=== PATIENT | male | born 1960 | race Two or more races ===

== ENCOUNTER 2016-11-08 08:49 | Day surgery (SDC) | payer BC ==
[2016-11-03 15:21] LABS: Basophils # (auto) 0 uL; Basophils % (auto) 0.3 % (0.0-2.0); Eosinophils # (auto) 0.1 uL; Eosinophils % (auto) 1.2 % (0.0-7.0); Hematocrit 44.3 % (41.0-53.0); Hemoglobin 14.5 g/dL (13.5-17.5); Lymphocytes # (auto) 1.9 uL; Lymphocytes % (auto) 23.1 % (10.0-50.0); Mean Corpuscular Hemoglobin 31.4 pg (28.0-32.0); Mean Corpuscular Hgb Conc. 32.7 g/dL (32.0-36.0); Mean Corpuscular Volume 96.2 fL (80.0-100.0); Mean Platelet Volume 9.3 fL (7.4-10.4); Monocytes # (auto) 0.4 uL; Monocytes % (auto) 5.2 % (0.0-12.0); Neutrophils # (auto) 5.8 uL; Neutrophils % (auto) 70.2 % (37.0-80.0); Platelet Count (auto) 291 10^3/uL (140-450); Red Cell Distribution Width 14.1 % (11.6-16.0); White Blood Cell 8.3 10^3/uL (4.4-10.8)
[2016-11-03 15:35] LABS: INR 1.03 (0.9-1.15); Partial Thromboplastin Time 25.9 sec (22.64-33.71); Prothrombin Time 10.6 sec (9.37-12.3)
[2016-11-03 15:36] LABS: Urine Bilirubin Negative (Negative); Urine Blood Negative /uL (Negative); Urine Color Yellow (Yellow); Urine Glucose Normal (Normal); Urine Ketone Negative (Negative); Urine Nitrite Negative (Negative); Urine RBC 1 /hpf (0 - 3); Urine Urobilinogen Normal (Negative)
[2016-11-03 15:40] LABS: BUN/Creatinine Ratio 13.3; Calcium 8.9 mg/dL (8.5-10.1); Potassium 4.1 mmol/L (3.5-5.1)
[2016-11-03 15:43] LABS: Bilirubin, Total 0.5 mg/dL (0.2-1.0); Total Protein 7.2 g/dL (6.4-8.2)
[~2016-11-08] VITALS: Ht 182.9 cm; Wt 87.1 kg
[~2016-11-08 08:49] MED LIST: ASPI-231 PO; CHOL1000 PO; ESOM20CA PO; FOLITAB OR; LISI-646 PO; MAGN400C3 PO; SIMV-8 PO
[2016-11-08] MEDS ORDERED: ceFAZolin 1GM/50ML D5W 50 ML IV ONE (10:54)
[2016-11-08] MEDS ORDERED: BUPIVACAINE 0.75% INJ 10ML MPV SDV IJ ONE (12:08)
[2016-11-08] MEDS ORDERED: fentaNYL CITRATE 100 MCG/2 ML VL ONE ×2 (12:19→12:26)
[2016-11-08] MEDS ORDERED: MIDAZOLAM HCL 1MG/1ML-2 ML VIAL ONE (12:19)
[2016-11-08] MEDS ORDERED: PROPOFOL 10 MG/ML 20 ML IV ONE ×2 (12:25→12:54)
[2016-11-08] MEDS ORDERED: DILTIAZEM 125mg/125ml BAG KIT 125 ML IV STA (13:01)
[2016-11-08] MEDS ORDERED: ePHEDrine SULFATE 50 MG/ML AMP IV PRN (13:15)
[2016-11-08] MEDS ORDERED: hydrALAZINE HCL 20 MG/ML VL IV PRN (13:15)
[2016-11-08] MEDS ORDERED: HYDROmorphone HCL 2 MG/ML VL IV PRN (13:15)
[2016-11-08] MEDS ORDERED: ONDANSETRON HCL 4 MG/2 ML VIAL IV ONE (13:15)
[2016-11-08] MEDS ORDERED: METOPROLOL SUCCINATE XL 50 MG TAB PO ONE (14:30)
[2016-11-08 15:20] VITALS: BP 148/94
== END 2016-11-08 15:30 | disposition home or self-care (01) ==
LOC: SUR 08:49
PROVIDERS: ATTEND Podiatrist Foot & Ankle Surgery
DX: L82.0 Inflamed seborrheic keratosis (principal); K21.9 Gastro-esophageal reflux disease without esophagitis; I10 Essential (primary) hypertension; I48.91 Unspecified atrial fibrillation
CPT/HCPCS: 11421; 28285; 36415; 80053; 81001; 85025; 85610; 85730; 88304; 88305; 88311; J0690; J2250; J2704; J3010; J3490; Q4139

== ENCOUNTER → 2016-12-04 | Outpatient (CLI) | payer BC ==
[2016-12-04 14:45] VITALS: BP 128/99
[2016-12-04 15:15] VITALS: BP 134/92
[2016-12-04 16:45] LABS: Basophils # (auto) 0 uL; Basophils % (auto) 0.4 % (0.0-2.0); Eosinophils # (auto) 0.1 uL; Eosinophils % (auto) 1.5 % (0.0-7.0); Hematocrit 45.8 % (41.0-53.0); Hemoglobin 14.9 g/dL (13.5-17.5); Lymphocytes # (auto) 1.8 uL; Lymphocytes % (auto) 28.3 % (10.0-50.0); Mean Corpuscular Hemoglobin 31.2 pg (28.0-32.0); Mean Corpuscular Hgb Conc. 32.5 g/dL (32.0-36.0); Mean Platelet Volume 9.2 fL (7.4-10.4); Monocytes # (auto) 0.4 uL; Monocytes % (auto) 6.4 % (0.0-12.0); Neutrophils % (auto) 63.4 % (37.0-80.0); Platelet Count (auto) 239 10^3/uL (140-450); Red Cell Distribution Width 12.8 % (11.6-16.0); White Blood Cell 6.4 10^3/uL (4.4-10.8)
[2016-12-04 17:14] LABS: INR 1.1 (0.9-1.15); Partial Thromboplastin Time 29.6 sec (22.64-33.71); Prothrombin Time 11.3 sec (9.37-12.3)
[2016-12-04 17:30] LABS: Calcium 9.1 mg/dL (8.5-10.1); Potassium 3.7 mmol/L (3.5-5.1)
== END | disposition home or self-care (01) ==
LOC: Rad HDHVI 14:43
PROVIDERS: ATTEND Internal Medicine Cardiovascular Disease
DX: I10 Essential (primary) hypertension (principal); D64.9 Anemia, unspecified; R79.1 Abnormal coagulation profile
CPT/HCPCS: 36415; 71020; 80048; 82306; 85025; 85610; 85730; 93005; G0463

== ENCOUNTER → 2016-12-06 | Day surgery (SDC) | payer BC ==
[~2016-12-06] MED LIST changes: +FLUMAZENIL 0.1 MG/ML INJ 10ML MDV IV ONE; +MIDAZOLAM HCL 1MG/1ML-2 ML VIAL IM ONE; +MIDAZOLAM HCL 1MG/1ML-2 ML VIAL IV ONE; +MIDAZOLAM HCL 1MG/1ML-2 ML VIAL ONE; +NALOXONE HCL 0.4 MG/ML VIAL IM ONE; +diphenhdrAMINE HCL 50 MG/1 ML VL IM ONE; +diphenhdrAMINE HCL 50 MG/1 ML VL ONE; +fentaNYL CITRATE 100 MCG/2 ML VL IM ONE; +fentaNYL CITRATE 100 MCG/2 ML VL IV ONE
== END | disposition home or self-care (01) ==
LOC: CATH 07:41
PROVIDERS: ATTEND Internal Medicine Cardiovascular Disease
DX: I48.91 Unspecified atrial fibrillation (principal); R00.0 Tachycardia, unspecified
CPT/HCPCS: 92960; J2250

== ENCOUNTER → 2017-04-17 | Outpatient (CLI) | payer BC ==
[~2017-04-17] VITALS: Ht 182.9 cm; Wt 88.9 kg
[~2017-04-17] MED LIST changes: -FLUMAZENIL 0.1 MG/ML INJ 10ML MDV IV ONE; -MIDAZOLAM HCL 1MG/1ML-2 ML VIAL IM ONE; -MIDAZOLAM HCL 1MG/1ML-2 ML VIAL IV ONE; -MIDAZOLAM HCL 1MG/1ML-2 ML VIAL ONE; -NALOXONE HCL 0.4 MG/ML VIAL IM ONE; -diphenhdrAMINE HCL 50 MG/1 ML VL IM ONE; -diphenhdrAMINE HCL 50 MG/1 ML VL ONE; -fentaNYL CITRATE 100 MCG/2 ML VL IM ONE; -fentaNYL CITRATE 100 MCG/2 ML VL IV ONE
== END | disposition home or self-care (01) ==
LOC: Rad HDHVI 09:50
PROVIDERS: ATTEND Internal Medicine Cardiovascular Disease
DX: I10 Essential (primary) hypertension (principal); I48.0 Paroxysmal atrial fibrillation; I31.3 Pericardial effusion (noninflammatory); I07.1 Rheumatic tricuspid insufficiency; Z72.0 Tobacco use
CPT/HCPCS: 78452; 93017; 93306; 96374; A9500

== ENCOUNTER → 2018-01-02 | Outpatient (CLI) | payer BC ==
[~2018-01-02] MED LIST changes: +DRON400T PO; +LEVO88TA36 PO; +SIMV10TA84 PO
[2018-01-02 15:40] VITALS: BP 155/93
[2018-01-02 17:20] VITALS: BP 140/92
== END | disposition home or self-care (01) ==
LOC: CHF HDHVI 15:40
PROVIDERS: ATTEND Internal Medicine Cardiovascular Disease
DX: I48.91 Unspecified atrial fibrillation (principal); I10 Essential (primary) hypertension
CPT/HCPCS: 93005; G0463

== ENCOUNTER → 2018-01-04 | Outpatient (CLI) | payer BC ==
[2018-01-04 12:03] LABS: Urine Blood Negative /uL (Negative)
[2018-01-04 12:05] LABS: Basophils # (auto) 0 uL; Basophils % (auto) 0.4 % (0.0-2.0); Eosinophils # (auto) 0 uL; Eosinophils % (auto) 0.8 % (0.0-7.0); Hematocrit 43.6 % (41.0-53.0); Hemoglobin 14.4 g/dL (13.5-17.5); Lymphocytes # (auto) 1.1 uL; Lymphocytes % (auto) 18.9 % (10.0-50.0); Mean Corpuscular Hgb Conc. 33.1 g/dL (32.0-36.0); Mean Corpuscular Volume 99.6 fL (80.0-100.0); Monocytes # (auto) 0.3 uL; Monocytes % (auto) 4.6 % (0.0-12.0); Neutrophils # (auto) 4.5 uL; Neutrophils % (auto) 75.3 % (37.0-80.0); Platelet Count (auto) 214 10^3/uL (140-450); Red Blood Cells 4.38 10^6/uL (4.5-5.90); Red Cell Distribution Width 13.7 % (11.8-14.3); White Blood Cell 5.9 10^3/uL (4.4-10.8)
[2018-01-04 12:24] LABS: Free T4 (Free Thyroxine) 1.32 ng/dL (0.89-1.76); Prostate Specific Antigen 0.42 ng/mL (0.0-4.0)
[2018-01-04 12:39] LABS: Albumin 4.1 g/dL (3.4-5.0); BUN/Creatinine Ratio 14.9; Bilirubin, Direct 0.2 mg/dL (0-0.2); Bilirubin, Total 0.8 mg/dL (0.2-1.0); Calcium 9.2 mg/dL (8.5-10.1); Potassium 3.9 mmol/L (3.5-5.1); Total Protein 7.3 g/dL (6.4-8.2)
== END | disposition home or self-care (01) ==
LOC: LAB 08:03
PROVIDERS: ATTEND Internal Medicine Cardiovascular Disease
DX: E78.00 Pure hypercholesterolemia, unspecified (principal); D64.9 Anemia, unspecified; I10 Essential (primary) hypertension; E03.9 Hypothyroidism, unspecified; E11.9 Type 2 diabetes mellitus without complications; E55.9 Vitamin D deficiency, unspecified; K74.1 Hepatic sclerosis; D51.9 Vitamin B12 deficiency anemia, unspecified; R53.81 Other malaise; R97.20 Elevated prostate specific antigen [PSA]; N39.0 Urinary tract infection, site not specified
CPT/HCPCS: 36415; 80048; 80061; 80076; 81003; 82306; 82607; 83036; 84153; 84403; 84439; 84443; 85025

== ENCOUNTER 2018-01-13 12:38 | Inpatient (IN) | payer BC ==
[~2018-01-13] VITALS: Ht 182.9 cm; Wt 86.7 kg
[~2018-01-13 12:38] MED LIST changes: -DRON400T PO; -LEVO88TA36 PO; -SIMV10TA84 PO
[2018-01-13] MEDS ORDERED: SODIUM CHLORIDE 0.9% 1,000 ML IV ONE (13:17)
[2018-01-13] MEDS ORDERED: PROMETHAZINE HCL 25 MG/ML 1ML IV ONE (13:30)
[2018-01-13] MEDS ORDERED: NALBUPHINE HCL 10 MG/1ml INJECTION IV ONE (13:30)
[2018-01-13 13:38] LABS: Basophils # (auto) 0 uL; Basophils % (auto) 0.4 % (0.0-2.0); Eosinophils # (auto) 0 uL; Eosinophils % (auto) 0.3 % (0.0-7.0); Hematocrit 43.4 % (41.0-53.0); Hemoglobin 14.7 g/dL (13.5-17.5); Lymphocytes # (auto) 1.2 uL; Mean Corpuscular Hemoglobin 33.4 pg (28.0-32.0); Mean Corpuscular Hgb Conc. 33.8 g/dL (32.0-36.0); Mean Corpuscular Volume 98.7 fL (80.0-100.0); Monocytes # (auto) 0.3 uL; Neutrophils # (auto) 5.2 uL; Neutrophils % (auto) 76.3 % (37.0-80.0); Platelet Count (auto) 217 10^3/uL (140-450); Red Cell Distribution Width 13.4 % (11.8-14.3); White Blood Cell 6.8 10^3/uL (4.4-10.8)
[2018-01-13 13:46] LABS: Urine Bacteria NONE SEEN /hpf (None Seen); Urine Blood Negative /uL (Negative); Urine Specific Gravity 1.004 (1.001-1.035); Urine WBC 1 /hpf (0 - 3)
[2018-01-13 13:51] LABS: Albumin 4.3 g/dL (3.4-5.0); Anion Gap 8 (5-15); Blood Urea Nitrogen 14 mg/dL (7-18); Calcium 8.9 mg/dL (8.5-10.1); Carbon Dioxide 22 mmol/L (21-32); Chloride 113 mmol/L (98-107); Glucose 100 mg/dL (74-106); Magnesium 2.2 mg/dL (1.6-2.6); Potassium 3.7 mmol/L (3.5-5.1); Sodium 143 mmol/L (136-145)
[2018-01-13 13:56] LABS: INR 1.1 (0.9-1.15)
[2018-01-13 14:06] LABS: Alanine Aminotransferase 40 U/L (16-61); Aspartate Aminotransferase 20 U/L (15-37); GFR African American 75 mL/min; GFR Non-African American 62 mL/min
[2018-01-13 14:13] LABS: Alkaline Phosphatase 69 U/L (45-117); Bilirubin, Total 0.5 mg/dL (0.2-1.0); Total Protein 7.3 g/dL (6.4-8.2)
[2018-01-13] MEDS ORDERED: HYDROcodone-ACET 5/325MG TAB PO PRN (16:00)
[2018-01-13] MEDS ORDERED: DRON400T PO (18:27)
[2018-01-13] MEDS ORDERED: ZOCOR 20 MG PO SCH (22:00)
[2018-01-13] MEDS: SODIUM CHLOR 0.9% PF (SALINE LOCK) 10ML VIAL IV SCH (22:00)
[2018-01-13] MEDS ORDERED: MULTAQ 400 MG PO SCH (22:00)
[2018-01-14 00:32] VITALS: BP 135/77
[2018-01-14 05:12] VITALS: BP 127/88
[2018-01-14] MEDS: SODIUM CHLOR 0.9% PF (SALINE LOCK) 10ML VIAL IV SCH ×2 (06:00→14:46)
[2018-01-14 08:00] VITALS: BP 137/89
[2018-01-14] MEDS: DRONEDARONE HCL 400 MG TAB PO SCH ×2 (10:00→20:39)
[2018-01-14] MEDS ORDERED: LEVO88TA36 PO (10:12)
[2018-01-14] MEDS: MAGNESIUM OXIDE 400 MG TAB PO SCH (10:13)
[2018-01-14] MEDS: LISINOPRIL 20 MG TAB PO SCH (10:14)
[2018-01-14 12:00] VITALS: BP 136/84
[2018-01-14] MEDS ORDERED: SIMV10TA84 PO (12:54)
[2018-01-14 17:00] VITALS: BP 131/80
[2018-01-14] MEDS ORDERED: LIDOCAINE 2%HCL (LOCAL ANESTH.) INJ 20ML MDV ONE (17:42)
[2018-01-14] MEDS ORDERED: RIVAROXABAN 20 MG TAB PO SCH (18:00)
[2018-01-14 19:56] LABS: Protein, CSF 65.1 mg/dL (15-45)
[2018-01-14 20:22] LABS: CSF White Blood Cells 0 CUMM (0-5)
[2018-01-14 22:00] VITALS: BP 105/67
[2018-01-14] MEDS ORDERED: PRAVASTATIN SODIUM 20 MG TAB PO SCH ×2 (22:00)
[2018-01-15] MEDS: SODIUM CHLOR 0.9% PF (SALINE LOCK) 10ML VIAL IV SCH ×2 (00:46→06:41)
[2018-01-15 05:00] VITALS: BP 115/64
[2018-01-15] MEDS ORDERED: LEVOTHYROXINE SODIUM 88 MCG TAB PO SCH (07:00)
[2018-01-15 08:41] VITALS: BP 122/63
[2018-01-15] MEDS: DRONEDARONE HCL 400 MG TAB PO SCH (09:20)
[2018-01-15] MEDS: MAGNESIUM OXIDE 400 MG TAB PO SCH (09:20)
[2018-01-15] MEDS: LISINOPRIL 20 MG TAB PO SCH (09:20)
[2018-01-15 10:36] VITALS: BP 122/63
== END 2018-01-15 12:10 | disposition home or self-care (01) | DRG 103 ==
LOC: ER 12:38 → TELE 12:39 → TELE-WESTW 17:50
PROVIDERS: ADMIT Internal Medicine Cardiovascular Disease; ATTEND Internal Medicine Cardiovascular Disease
PROC: 009U3ZX Drainage of Spinal Canal, Percutaneous Approach, Diagnostic (ICD-10-PCS; principal; 2018-01-14)
DX: G44.1 Vascular headache, not elsewhere classified (principal); D68.59 Other primary thrombophilia; E03.9 Hypothyroidism, unspecified; F17.210 Nicotine dependence, cigarettes, uncomplicated; I48.0 Paroxysmal atrial fibrillation; M50.123 Cervical disc disorder at C6-C7 level with radiculopathy; I10 Essential (primary) hypertension; H53.9 Unspecified visual disturbance; I77.6 Arteritis, unspecified; K21.9 Gastro-esophageal reflux disease without esophagitis; Z79.01 Long term (current) use of anticoagulants; Z82.49 Family history of ischemic heart disease and other diseases of the circulatory system; Z86.73 Personal history of transient ischemic attack (TIA), and cerebral infarction without residual deficits
CPT/HCPCS: 36415; 70450; 70551; 71046; 72125; 80053; 81001; 82945; 83735; 84157; 84443; 84484; 85025; 85610; 85652; 89051; 93005; 94761; 96361; 96374; 96375

== ENCOUNTER 2018-01-19 10:40 | Emergency (ER) | payer BC ==
[~2018-01-19] VITALS: Ht 182.9 cm; Wt 87.5 kg
[~2018-01-19 10:40] MED LIST changes: -ASPI-231 PO; +DRON400T PO; -ESOM20CA PO; +LEVO88TA36 PO; -SIMV-8 PO; +SIMV10TA84 PO
[2018-01-19 11:17] VITALS: BP 152/98
== END 2018-01-19 12:53 | disposition left against medical advice (07) ==
LOC: ER 10:40
DX: M54.2 Cervicalgia (principal); R51 Headache; Z53.21 Procedure and treatment not carried out due to patient leaving prior to being seen by health care provider

== ENCOUNTER → 2018-04-10 | Outpatient (CLI) | payer BC | END | disposition home or self-care (01) | LOC: Rad HDHVI 08:18 | PROVIDERS: ATTEND Internal Medicine Cardiovascular Disease | DX: I67.2 Cerebral atherosclerosis (principal); I48.0 Paroxysmal atrial fibrillation | CPT/HCPCS: 70450 ==

== ENCOUNTER 2018-07-11 18:52 | Inpatient (IN) | payer BC ==
[~2018-07-11] VITALS: Ht 182.9 cm; Wt 86.2 kg
[2018-07-11 20:22] LABS: Albumin 3.8 g/dL (3.4-5.0); Anion Gap 6 (5-15); Blood Urea Nitrogen 17 mg/dL (7-18); Calcium 8.1 mg/dL (8.5-10.1); Carbon Dioxide 24 mmol/L (21-32); Chloride 111 mmol/L (98-107); Glucose 99 mg/dL (74-106); Potassium 4.1 mmol/L (3.5-5.1); Sodium 141 mmol/L (136-145)
[2018-07-11 20:23] LABS: Basophils # (auto) 0 uL; Eosinophils # (auto) 0.1 uL; Neutrophils # (auto) 4.7 uL; Nucleated Red Blood Cells % 0.2 %; White Blood Cell 7.1 10^3/uL (4.4-10.8)
[2018-07-11 20:24] LABS: GFR African American 79 mL/min; GFR Non-African American 65 mL/min
[2018-07-11 20:26] LABS: Basophils % (auto) 0.5 % (0.0-2.0); Eosinophils % (auto) 0.9 % (0.0-7.0); Hematocrit 42.3 % (41.0-53.0); Lymphocytes # (auto) 1.9 uL; Lymphocytes % (auto) 26.4 % (10.0-50.0); Mean Corpuscular Hemoglobin 35.1 pg (28.0-32.0); Mean Corpuscular Hgb Conc. 35.4 g/dL (32.0-36.0); Mean Corpuscular Volume 99.1 fL (80.0-100.0); Monocytes # (auto) 0.5 uL; Monocytes % (auto) 6.6 % (0.0-12.0); Neutrophils % (auto) 65.6 % (37.0-80.0); Platelet Count (auto) 253 10^3/uL (140-450); Red Blood Cells 4.27 10^6/uL (4.5-5.90); Red Cell Distribution Width 13.7 % (11.8-14.3)
[2018-07-11 20:27] LABS: Partial Thromboplastin Time 28.9 sec (23.78-33.04); Prothrombin Time 10.7 sec (9.27-12.13)
[2018-07-11 20:32] LABS: Alkaline Phosphatase 69 U/L (45-117); Bilirubin, Total 0.4 mg/dL (0.2-1.0); Total Protein 7.1 g/dL (6.4-8.2)
[2018-07-11 20:37] LABS: Alanine Aminotransferase 26 U/L (16-61); Aspartate Aminotransferase 24 U/L (15-37)
[2018-07-11] MEDS ORDERED: NITROGLYCERIN 0.4 MG SL TAB SL PRN (21:30)
[2018-07-11] MEDS ORDERED: MORPHINE SULF INJ 2 MG/ML SYRINGE 1ML IV PRN (21:30)
[2018-07-11 22:00] VITALS: BP 129/86
[2018-07-11] MEDS ORDERED: DRONEDARONE 400 MG PO SCH (22:00)
[2018-07-11 22:45] VITALS: BP 129/86
[2018-07-11] MEDS: MAGNESIUM OXIDE 400 MG TAB PO SCH (22:52)
[2018-07-12 05:00] VITALS: BP 117/73
[2018-07-12] MEDS: LEVOTHYROXINE SODIUM 88 MCG TAB PO SCH (06:15)
[2018-07-12 09:00] VITALS: BP 104/76
[2018-07-12] MEDS: MAGNESIUM OXIDE 400 MG TAB PO SCH ×2 (09:52→21:55)
[2018-07-12] MEDS: DRONEDARONE HCL 400 MG TAB PO SCH ×2 (09:53→21:56)
[2018-07-12] MEDS: LISINOPRIL 20 MG TAB PO SCH (09:53)
[2018-07-12 13:00] VITALS: BP 118/85
[2018-07-12 17:00] VITALS: BP 123/85
[2018-07-12] MEDS: RIVAROXABAN 20 MG TAB PO SCH (18:21)
[2018-07-12] MEDS: ATORVASTATIN 20 MG TAB PO SCH (21:55)
[2018-07-12 22:00] VITALS: BP 142/72
[2018-07-13 05:00] VITALS: BP 107/68
[2018-07-13] MEDS: LEVOTHYROXINE SODIUM 88 MCG TAB PO SCH (06:37)
[2018-07-13 08:00] VITALS: BP 123/80
[2018-07-13 09:00] VITALS: BP 123/80
[2018-07-13] MEDS: DRONEDARONE HCL 400 MG TAB PO SCH ×2 (09:32→22:16)
[2018-07-13] MEDS: LISINOPRIL 20 MG TAB PO SCH (09:32)
[2018-07-13] MEDS: MAGNESIUM OXIDE 400 MG TAB PO SCH ×2 (09:32→22:15)
[2018-07-13 13:00] VITALS: BP 124/78
[2018-07-13 17:00] VITALS: BP 126/76
[2018-07-13] MEDS: RIVAROXABAN 20 MG TAB PO SCH (17:57)
[2018-07-13 22:00] VITALS: BP 100/62
[2018-07-13] MEDS: ATORVASTATIN 20 MG TAB PO SCH (22:15)
[2018-07-14] VITALS (8 sets, daily range): BP systolic 102–144; BP diastolic 63–76
[2018-07-14] MEDS: LEVOTHYROXINE SODIUM 88 MCG TAB PO SCH (07:32)
[2018-07-14] MEDS: MAGNESIUM OXIDE 400 MG TAB PO SCH ×2 (10:25→22:04)
[2018-07-14] MEDS: LISINOPRIL 20 MG TAB PO SCH (10:26)
[2018-07-14] MEDS: DRONEDARONE HCL 400 MG TAB PO SCH ×2 (10:26→22:04)
[2018-07-14] MEDS: ATORVASTATIN 20 MG TAB PO SCH (22:04)
[2018-07-15] VITALS (8 sets, daily range): BP systolic 98–123; BP diastolic 52–86
[2018-07-15 00:31] LABS: Urine WBC None Seen /hpf (0 - 3)
[2018-07-15 00:39] LABS: Urine Bacteria NONE SEEN /hpf (None Seen); Urine Blood Negative /uL (Negative); Urine Specific Gravity 1.005 (1.001-1.035)
[2018-07-15 06:15] LABS: Basophils # (auto) 0 uL; Basophils % (auto) 0.5 % (0.0-2.0); Eosinophils # (auto) 0.1 uL; Eosinophils % (auto) 1.5 % (0.0-7.0); Hemoglobin 15.6 g/dL (13.5-17.5); Lymphocytes # (auto) 1.6 uL; Mean Corpuscular Hemoglobin 33.8 pg (28.0-32.0); Mean Corpuscular Volume 99.3 fL (80.0-100.0); Monocytes # (auto) 0.5 uL; Monocytes % (auto) 7.1 % (0.0-12.0); Neutrophils # (auto) 5.2 uL; Neutrophils % (auto) 69.9 % (37.0-80.0); Nucleated Red Blood Cells % 0.1 %; Platelet Count (auto) 255 10^3/uL (140-450); Red Blood Cells 4.63 10^6/uL (4.5-5.90); Red Cell Distribution Width 13.4 % (11.8-14.3); White Blood Cell 7.5 10^3/uL (4.4-10.8)
[2018-07-15 06:28] LABS: Partial Thromboplastin Time 27.5 sec (23.78-33.04); Prothrombin Time 10.7 sec (9.27-12.13)
[2018-07-15 06:43] LABS: Albumin 4.2 g/dL (3.4-5.0); Calcium 9.1 mg/dL (8.5-10.1); Potassium 3.7 mmol/L (3.5-5.1)
[2018-07-15 06:45] LABS: BUN/Creatinine Ratio 14.3
[2018-07-15 06:48] LABS: Bilirubin, Total 0.9 mg/dL (0.2-1.0); Total Protein 7.9 g/dL (6.4-8.2)
[2018-07-15] MEDS: LEVOTHYROXINE SODIUM 88 MCG TAB PO SCH (07:15)
[2018-07-15] MEDS ORDERED: LIDOCAINE 2% (LOCAL ANESTH.) PF 5ml SDV ONE (07:18)
[2018-07-15] MEDS ORDERED: IODIXANOL 320MG/ML 100ML BTL IV ONE (07:18)
[2018-07-15] MEDS ORDERED: ANGIOMAX 250 MG VIAL IV ONE (08:50)
[2018-07-15] MEDS ORDERED: MIDAZOLAM HCL 1MG/1ML-2 ML VIAL ONE ×2 (08:51→13:17)
[2018-07-15] MEDS ORDERED: fentaNYL CITRATE 100 MCG/2 ML VL ONE ×2 (08:51→13:17)
[2018-07-15] MEDS ORDERED: SODIUM CHL 0.9% 0 ML ONE (08:51)
[2018-07-15] MEDS: LISINOPRIL 20 MG TAB PO SCH (10:00)
[2018-07-15] MEDS: DRONEDARONE HCL 400 MG TAB PO SCH ×2 (10:00→22:27)
[2018-07-15] MEDS: MAGNESIUM OXIDE 400 MG TAB PO SCH ×2 (10:00→22:26)
[2018-07-15] MEDS ORDERED: ceFAZolin 1GM/50ML 50 ML IV ONE (12:45)
[2018-07-15] MEDS ORDERED: LIDOCAINE 2%HCL (LOCAL ANESTH.) INJ 20ML MDV ONE (13:15)
[2018-07-15] MEDS ORDERED: VANCOMYCIN 1GM/250ML 250 ML IV ONE (13:17)
[2018-07-15] MEDS ORDERED: VANCOMYCIN HCL 1000 MG VL ONE (13:18)
[2018-07-15] MEDS: ATORVASTATIN 20 MG TAB PO SCH (22:26)
[2018-07-16] MEDS: VANCOMYCIN 1GM/250ML 250 ML IV SCH ×2 (01:37→13:00)
[2018-07-16 05:00] VITALS: BP 114/77
[2018-07-16] MEDS: LEVOTHYROXINE SODIUM 88 MCG TAB PO SCH (07:00)
[2018-07-16 08:52] VITALS: BP 113/82
[2018-07-16] MEDS ORDERED: HYDROcodone-ACET 10/325MG TAB PO PRN (10:00)
[2018-07-16] MEDS: DRONEDARONE HCL 400 MG TAB PO SCH (10:19)
[2018-07-16] MEDS: MAGNESIUM OXIDE 400 MG TAB PO SCH (10:22)
[2018-07-16] MEDS: LISINOPRIL 20 MG TAB PO SCH (10:23)
[2018-07-16 13:00] VITALS: BP 110/63
[2018-07-16 15:12] VITALS: BP 110/63
[2018-07-16 16:18] VITALS: BP 130/80
== END 2018-07-16 17:24 | disposition home or self-care (01) | DRG 243 ==
LOC: ER 18:52 → TELE 18:53 → TELE-EAST 22:10
PROVIDERS: ADMIT Internal Medicine Cardiovascular Disease; ATTEND Internal Medicine Cardiovascular Disease
PROC: 0JH606Z Insertion of Pacemaker, Dual Chamber into Chest Subcutaneous Tissue and Fascia, Open Approach (ICD-10-PCS; principal; 2018-07-15)
PROC: 02H63JZ Insertion of Pacemaker Lead into Right Atrium, Percutaneous Approach (ICD-10-PCS; 2018-07-15)
PROC: 02HK3JZ Insertion of Pacemaker Lead into Right Ventricle, Percutaneous Approach (ICD-10-PCS; 2018-07-15)
PROC: 4A023N7 Measurement of Cardiac Sampling and Pressure, Left Heart, Percutaneous Approach (ICD-10-PCS; 2018-07-15)
PROC: B2111ZZ Fluoroscopy of Multiple Coronary Arteries using Low Osmolar Contrast (ICD-10-PCS; 2018-07-15)
PROC: B2151ZZ Fluoroscopy of Left Heart using Low Osmolar Contrast (ICD-10-PCS; 2018-07-15)
DX: I49.5 Sick sinus syndrome (principal); I24.9 Acute ischemic heart disease, unspecified; D68.59 Other primary thrombophilia; E03.9 Hypothyroidism, unspecified; F17.210 Nicotine dependence, cigarettes, uncomplicated; F32.9 Major depressive disorder, single episode, unspecified; I10 Essential (primary) hypertension; I48.0 Paroxysmal atrial fibrillation; I73.9 Peripheral vascular disease, unspecified; J44.9 Chronic obstructive pulmonary disease, unspecified; K21.9 Gastro-esophageal reflux disease without esophagitis; Z79.01 Long term (current) use of anticoagulants; Z82.49 Family history of ischemic heart disease and other diseases of the circulatory system; Z86.73 Personal history of transient ischemic attack (TIA), and cerebral infarction without residual deficits; Z79.899 Other long term (current) drug therapy; Z79.82 Long term (current) use of aspirin
CPT/HCPCS: 33208; 36415; 71045; 80053; 81001; 83735; 83880; 84484; 85025; 85610; 85730; 93005; 93458; 94761; 99152; A6257; C1785; J0690; J2001; J2250; Q9967

== ENCOUNTER → 2018-12-18 | Outpatient (CLI) | payer BC ==
[2018-12-18 12:02] LABS: Albumin 4.1 g/dL (3.4-5.0); Calcium 8.9 mg/dL (8.5-10.1); Potassium 3.8 mmol/L (3.5-5.1)
[2018-12-18 12:06] LABS: Urine Blood Negative /uL (Negative); Urine Specific Gravity 1.013 (1.001-1.035)
[2018-12-18 12:09] LABS: Basophils # (auto) 0 uL; Basophils % (auto) 0.5 % (0.0-2.0); Eosinophils # (auto) 0.1 uL; Eosinophils % (auto) 2.5 % (0.0-7.0); Hematocrit 45.5 % (41.0-53.0); Hemoglobin 15.2 g/dL (13.5-17.5); Lymphocytes % (auto) 21.6 % (10.0-50.0); Mean Corpuscular Hemoglobin 33.7 pg (28.0-32.0); Mean Corpuscular Hgb Conc. 33.5 g/dL (32.0-36.0); Mean Corpuscular Volume 100.5 fL (80.0-100.0); Monocytes # (auto) 0.3 uL; Neutrophils # (auto) 3.3 uL; Neutrophils % (auto) 68.4 % (37.0-80.0); Nucleated Red Blood Cells % 0.1 %; Platelet Count (auto) 202 10^3/uL (140-450); Red Blood Cells 4.53 10^6/uL (4.5-5.90); Red Cell Distribution Width 13.2 % (11.8-14.3); White Blood Cell 4.8 10^3/uL (4.4-10.8)
[2018-12-18 12:10] LABS: BUN/Creatinine Ratio 16.2; Bilirubin, Total 0.8 mg/dL (0.2-1.0); Total Protein 7.6 g/dL (6.4-8.2)
[2018-12-18 12:12] LABS: Free T4 (Free Thyroxine) 1.4 ng/dL (0.89-1.76)
[2018-12-18 12:13] LABS: Prostate Specific Antigen 0.51 ng/mL (0.0-4.0)
== END | disposition home or self-care (01) ==
LOC: LAB 07:58
PROVIDERS: ATTEND Internal Medicine Cardiovascular Disease
DX: Z00.00 Encounter for general adult medical examination without abnormal findings (principal); E03.9 Hypothyroidism, unspecified; E11.9 Type 2 diabetes mellitus without complications; E55.9 Vitamin D deficiency, unspecified; D51.9 Vitamin B12 deficiency anemia, unspecified; E29.1 Testicular hypofunction; C61 Malignant neoplasm of prostate; N39.0 Urinary tract infection, site not specified
CPT/HCPCS: 36415; 80053; 80061; 81003; 82306; 82607; 83036; 84153; 84403; 84439; 84443; 85025

== ENCOUNTER → 2019-02-04 | Outpatient (CLI) | payer BC | END | disposition home or self-care (01) | LOC: Rad HDHVI 07:49 | PROVIDERS: ATTEND Internal Medicine Cardiovascular Disease | DX: M16.11 Unilateral primary osteoarthritis, right hip (principal); K57.30 Diverticulosis of large intestine without perforation or abscess without bleeding; I73.9 Peripheral vascular disease, unspecified; K40.90 Unilateral inguinal hernia, without obstruction or gangrene, not specified as recurrent | CPT/HCPCS: 73700; 93926 ==

== ENCOUNTER → 2019-11-06 | Outpatient (CLI) | payer BC ==
[~2019-11-06] MED LIST changes: +ADENOSINE 73 MG in GIVE UN-DILUTED 0 ML IV ONE; +ADENOSINE 90 MG/30 ML INJ IV ONE
== END | disposition home or self-care (01) ==
LOC: Rad HDHVI 07:50
PROVIDERS: ATTEND Internal Medicine Cardiovascular Disease
DX: I48.20 Chronic atrial fibrillation, unspecified (principal); I49.5 Sick sinus syndrome; I10 Essential (primary) hypertension; E78.5 Hyperlipidemia, unspecified; Z95.0 Presence of cardiac pacemaker
CPT/HCPCS: 78452; 93005; 93306; 96374; 96375; A9500; J0153

== ENCOUNTER → 2020-07-30 | Outpatient (CLI) | payer BC ==
[~2020-07-30] MED LIST changes: -ADENOSINE 73 MG in GIVE UN-DILUTED 0 ML IV ONE; -ADENOSINE 90 MG/30 ML INJ IV ONE
[2020-07-30 12:47] LABS: Bilirubin, Direct 0.3 mg/dL (0-0.2); Bilirubin, Total 1.1 mg/dL (0.2-1.0)
== END | disposition home or self-care (01) ==
LOC: LAB 08:46
PROVIDERS: ATTEND Internal Medicine
DX: E78.00 Pure hypercholesterolemia, unspecified (principal); R94.5 Abnormal results of liver function studies
CPT/HCPCS: 36415; 80061; 80076

== ENCOUNTER → 2021-04-19 | Outpatient (CLI) | payer BC ==
[~2021-04-19] MED LIST changes: +CHOL-17 PO; -CHOL1000 PO; +LEVO88TA2 PO; -LEVO88TA36 PO; -LISI-646 PO; +LISI20TA28 PO
[2021-04-19 11:57] LABS: Urine Blood Negative /uL (Negative); Urine Specific Gravity 1.017 (1.001-1.035)
[2021-04-19 12:04] LABS: Basophils # (auto) 0 10 ^3/uL (0-0.2); Basophils % (auto) 0.6 % (0.0-2.0); Eosinophils # (auto) 0.1 10 ^3/uL (0-0.8); Eosinophils % (auto) 2.1 % (0.0-7.0); Hematocrit 45.3 % (41.0-53.0); Hemoglobin 15.5 g/dL (13.5-17.5); Lymphocytes # (auto) 1.4 10 ^3/uL (0.4-5.4); Lymphocytes % (auto) 27.6 % (10.0-50.0); Mean Corpuscular Hgb Conc. 34.1 g/dL (32.0-36.0); Mean Corpuscular Volume 99.5 fL (80.0-100.0); Monocytes # (auto) 0.4 10 ^3/uL (0-1.3); Monocytes % (auto) 6.8 % (0.0-12.0); Neutrophils # (auto) 3.3 10 ^3/uL (1.6-8.6); Neutrophils % (auto) 62.9 % (37.0-80.0); Platelet Count (auto) 216 10^3/uL (140-450); Red Blood Cells 4.55 10^6/uL (4.5-5.90); Red Cell Distribution Width 13.1 % (11.8-14.3); White Blood Cell 5.2 10^3/uL (4.4-10.8)
[2021-04-19 12:22] LABS: Potassium 3.8 mmol/L (3.5-5.1)
[2021-04-19 12:25] LABS: Free T4 (Free Thyroxine) 1.21 ng/dL (0.89-1.76)
[2021-04-19 12:26] LABS: Prostate Specific Antigen 0.83 ng/mL (0.0-4.0)
[2021-04-19 12:28] LABS: BUN/Creatinine Ratio 19.4; Bilirubin, Total 1.2 mg/dL (0.2-1.0); Total Protein 7.3 g/dL (6.4-8.2)
== END | disposition home or self-care (01) ==
LOC: LAB 07:55
PROVIDERS: ATTEND Internal Medicine
DX: C61 Malignant neoplasm of prostate (principal); D51.3 Other dietary vitamin B12 deficiency anemia; I10 Essential (primary) hypertension; E11.9 Type 2 diabetes mellitus without complications; E55.9 Vitamin D deficiency, unspecified; D64.9 Anemia, unspecified; R00.2 Palpitations; R53.1 Weakness; R30.0 Dysuria
CPT/HCPCS: 36415; 80053; 80061; 81003; 82306; 82607; 83036; 84153; 84403; 84439; 84443; 85025

== ENCOUNTER → 2023-07-25 | Outpatient (CLI) | payer BC ==
[~2023-07-25] VITALS: Ht 182.9 cm; Wt 87.1 kg
[~2023-07-25] MED LIST changes: +ADENOSINE 73 MG in GIVE UN-DILUTED 0 ML IV ONE; +ADENOSINE 90 MG/30 ML INJ IV ONE; -LISI20TA28 PO; +LISI20TA56 PO; +SIMV10TA20 PO; -SIMV10TA84 PO
== END | disposition home or self-care (01) ==
LOC: Rad HDHVI 09:25
PROVIDERS: ATTEND Internal Medicine Cardiovascular Disease
DX: I11.0 Hypertensive heart disease with heart failure (principal); I50.43 Acute on chronic combined systolic (congestive) and diastolic (congestive) heart failure; R07.89 Other chest pain; I49.5 Sick sinus syndrome; E78.00 Pure hypercholesterolemia, unspecified; I48.91 Unspecified atrial fibrillation; F17.210 Nicotine dependence, cigarettes, uncomplicated; Z95.0 Presence of cardiac pacemaker
CPT/HCPCS: 78452; 93005; 96374; 96375; A9500; J0153

== ENCOUNTER → 2023-09-03 | Outpatient (CLI) | payer BC ==
[~2023-09-03] MED LIST changes: -ADENOSINE 73 MG in GIVE UN-DILUTED 0 ML IV ONE; -ADENOSINE 90 MG/30 ML INJ IV ONE; +ASCO500T11 PO; +AZIL40TA2 PO; +FOLI-49 PO; +METO-6 PO; +MULTTAB99 PO; +RIVA20TA PO
[2023-09-03 08:41] VITALS: BP 132/90; PULSE 77; RESP 16; O2SAT 96
[2023-09-03 08:52] VITALS: BP 122/88; PULSE 87; RESP 16; O2SAT 96
== END | disposition home or self-care (01) ==
LOC: CHF HDHVI 08:35
PROVIDERS: ATTEND Internal Medicine Cardiovascular Disease
DX: Z01.818 Encounter for other preprocedural examination (principal); R94.31 Abnormal electrocardiogram [ECG] [EKG]; I11.0 Hypertensive heart disease with heart failure; I50.43 Acute on chronic combined systolic (congestive) and diastolic (congestive) heart failure; R07.89 Other chest pain; I49.5 Sick sinus syndrome
CPT/HCPCS: 93005; G0463

== ENCOUNTER 2023-09-06 07:06 | Day surgery (SDC) | payer BC ==
[2023-09-03 10:49] LABS: Basophils # (auto) 0 10 ^3/uL (0-0.2); Basophils % (auto) 0.7 % (0.0-2.0); Eosinophils # (auto) 0.1 10 ^3/uL (0-0.8); Eosinophils % (auto) 0.8 % (0.0-7.0); Hematocrit 43.5 % (41.0-53.0); Hemoglobin 14.7 g/dL (13.5-17.5); Lymphocytes # (auto) 1.7 10 ^3/uL (0.4-5.4); Lymphocytes % (auto) 24.4 % (10.0-50.0); Mean Corpuscular Hemoglobin 33.2 pg (28.0-32.0); Mean Corpuscular Hgb Conc. 33.8 g/dL (32.0-36.0); Mean Corpuscular Volume 98.3 fL (80.0-100.0); Monocytes # (auto) 0.4 10 ^3/uL (0-1.3); Monocytes % (auto) 5.8 % (0.0-12.0); Neutrophils # (auto) 4.7 10 ^3/uL (1.6-8.6); Neutrophils % (auto) 68.3 % (37.0-80.0); Nucleated Red Blood Cells % 0.2 %; Red Blood Cells 4.42 10^6/uL (4.5-5.90); Red Cell Distribution Width 12.9 % (11.8-14.3); White Blood Cell 6.9 10^3/uL (4.4-10.8)
[2023-09-03 11:01] LABS: INR 1.12 (0.9-1.15); Partial Thromboplastin Time 32.9 SEC (24.5-34.5); Prothrombin Time 11.7 sec (9.3-11.8)
[2023-09-03 11:45] LABS: Anion Gap 8 (5-15); Calcium 9.7 mg/dL (8.5-10.1); Carbon Dioxide 27 mmol/L (20-30); Chloride 107 mmol/L (98-107); Potassium 4.3 mmol/L (3.5-5.1); Sodium 142 mmol/L (136-145)
[2023-09-03 11:51] LABS: BUN/Creatinine Ratio 11.4 (10.0-20.0); Blood Urea Nitrogen 12 mg/dL (9-23); Glucose 92 mg/dL (74-106)
[~2023-09-06] VITALS: Ht 182.9 cm; Wt 88.0 kg
[~2023-09-06 07:06] MED LIST changes: -DRON400T PO; -FOLITAB OR; -LISI20TA56 PO
[2023-09-06] MEDS ORDERED: IOHEXOL 350 MG/ML 100ML IJ ONE (07:24)
[2023-09-06] MEDS ORDERED: LIDOCAINE 2%HCL (LOCAL ANESTH.) INJ 20ML MDV ONE (07:24)
[2023-09-06] MEDS ORDERED: fentaNYL CITRATE 100 MCG/2 ML VL ONE (08:29)
[2023-09-06] MEDS ORDERED: MIDAZOLAM HCL 2MG/2ML 2ml VIAL (1mg/ml) ONE (08:29)
[2023-09-06] MEDS ORDERED: SODIUM CHL 0.9% 0 ML ONE (08:29)
[2023-09-06] MEDS ORDERED: ANGIOMAX 250 MG VIAL IV ONE (08:29)
== END 2023-09-06 10:35 | disposition home or self-care (01) ==
LOC: CATH 07:06
PROVIDERS: ATTEND Internal Medicine Cardiovascular Disease
DX: I42.0 Dilated cardiomyopathy (principal); I49.5 Sick sinus syndrome; R06.02 Shortness of breath; I10 Essential (primary) hypertension; E78.5 Hyperlipidemia, unspecified; Z79.01 Long term (current) use of anticoagulants; Z86.73 Personal history of transient ischemic attack (TIA), and cerebral infarction without residual deficits; R07.89 Other chest pain; Z79.899 Other long term (current) drug therapy
CPT/HCPCS: 36415; 80048; 85025; 85610; 85730; 93458; C1894; J1644; J2250; J3010; Q9967; 99152

== ENCOUNTER → 2023-10-01 | Outpatient (CLI) | payer BC ==
[~2023-10-01] MED LIST changes: +LORA-205 PO
[2023-10-01 09:00] VITALS: BP 108/73; PULSE 95; RESP 16; O2SAT 98
[2023-10-01 09:26] VITALS: BP 108/73; PULSE 95; RESP 16; O2SAT 98
== END | disposition home or self-care (01) ==
LOC: CHF HDHVI 08:47
PROVIDERS: ATTEND Internal Medicine Cardiovascular Disease
DX: Z01.818 Encounter for other preprocedural examination (principal)
CPT/HCPCS: G0463

== ENCOUNTER 2023-10-04 06:59 | Day surgery (SDC) | payer BC ==
[2023-10-01 11:47] LABS: Basophils # (auto) 0 10 ^3/uL (0-0.2); Basophils % (auto) 0.4 % (0.0-2.0); Eosinophils # (auto) 0 10 ^3/uL (0-0.8); Eosinophils % (auto) 0.6 % (0.0-7.0); Hematocrit 44.2 % (41.0-53.0); Hemoglobin 15.1 g/dL (13.5-17.5); Lymphocytes # (auto) 1.3 10 ^3/uL (0.4-5.4); Mean Corpuscular Hemoglobin 33.4 pg (28.0-32.0); Mean Corpuscular Hgb Conc. 34.1 g/dL (32.0-36.0); Monocytes # (auto) 0.4 10 ^3/uL (0-1.3); Monocytes % (auto) 6.1 % (0.0-12.0); Neutrophils % (auto) 73.9 % (37.0-80.0); Red Blood Cells 4.51 10^6/uL (4.5-5.90); Red Cell Distribution Width 13.8 % (11.8-14.3); White Blood Cell 6.8 10^3/uL (4.4-10.8)
[2023-10-01 11:50] LABS: INR 1.12 (0.9-1.15); Partial Thromboplastin Time 32.5 SEC (24.5-34.5); Prothrombin Time 11.7 sec (9.3-11.8)
[2023-10-01 12:11] LABS: Alanine Aminotransferase 23 U/L (7-40); Albumin 4.7 g/dL (3.2-4.8); Alkaline Phosphatase 71 U/L (46-116); Anion Gap 8 (5-15); Aspartate Aminotransferase 20 U/L (13-40); BUN/Creatinine Ratio 11.7 (10.0-20.0); Bilirubin, Total 0.6 mg/dL (0.2-1.0); Blood Urea Nitrogen 12 mg/dL (9-23); Calcium 9.7 mg/dL (8.5-10.1); Carbon Dioxide 27 mmol/L (20-30); Chloride 106 mmol/L (98-107); Glucose 90 mg/dL (74-106); Potassium 4.2 mmol/L (3.5-5.1); Sodium 141 mmol/L (136-145)
[~2023-10-04] VITALS: Ht 182.9 cm; Wt 88.0 kg
[2023-10-04] MEDS ORDERED: LIDOCAINE 2%HCL (LOCAL ANESTH.) INJ 20ML MDV ONE (09:26)
[2023-10-04] MEDS ORDERED: VANCOMYCIN HCL 1000 MG VL ONE (09:34)
[2023-10-04] MEDS ORDERED: fentaNYL CITRATE 100 MCG/2 ML VL ONE (09:34)
[2023-10-04] MEDS ORDERED: MIDAZOLAM HCL 2MG/2ML 2ml VIAL (1mg/ml) ONE ×2 (09:34→10:17)
[2023-10-04] MEDS ORDERED: VANCOMYCIN 1GM/250ML 250 ML IV ONE (09:35)
[2023-10-04] MEDS ORDERED: IOHEXOL 350 MG/ML 100ML IJ ONE (10:10)
[2023-10-04] MEDS ORDERED: FUROSEMIDE 20 MG/2 ML VIAL ONE (10:50)
== END 2023-10-04 13:29 | disposition home or self-care (01) ==
LOC: CATH 06:59
PROVIDERS: ATTEND Internal Medicine Cardiovascular Disease
DX: Z45.010 Encounter for checking and testing of cardiac pacemaker pulse generator [battery] (principal); I50.22 Chronic systolic (congestive) heart failure; I48.20 Chronic atrial fibrillation, unspecified; F17.210 Nicotine dependence, cigarettes, uncomplicated; Z82.49 Family history of ischemic heart disease and other diseases of the circulatory system; Z80.59 Family history of malignant neoplasm of other urinary tract organ; Z72.89 Other problems related to lifestyle
CPT/HCPCS: 33263; 36415; 71045; 80053; 85025; 85610; 85730; 93005; C1769; C1882; C1895; C1898; J1940; J2250; J3010; J3370; Q9967; 99152; 99153

== ENCOUNTER → 2023-12-24 | Outpatient (CLI) | payer BC | END | disposition home or self-care (01) | LOC: Rad HDHVI 09:39 | PROVIDERS: ATTEND Internal Medicine Cardiovascular Disease | DX: I08.1 Rheumatic disorders of both mitral and tricuspid valves (principal); R07.89 Other chest pain; R00.0 Tachycardia, unspecified | CPT/HCPCS: 93306 ==

== ENCOUNTER → 2024-12-22 | Outpatient (CLI) | payer MEDICARE, BC ==
--- NOTE | 2024-12-23 16:02 | DVHSR ---
APPROVED REPORT EXAM: Two-dimensional and M-mode echocardiogram with Doppler and color Doppler. DIMENSIONS LVDd4.9 (3.8-5.7cm)LA (2D)3.8 (1.9-4.0cm)Aortic Root3.6 (2.0-3.7cm) LVDs4.2 (2.5-4.0cm)LA (MM) (1.9-4.0cm)Aortic Cusp Exc2.4 (1.5-2.0cm) EF (%) 29.5 (55-70%)Rt. Atrium4.7 (1.9-4.0cm)Asc. Aorta cm IVSd1.1 (0.7-1.1cm)RV (D)4.2 (1.8-2.4cm) PWd1.3 (0.7-1.1cm) Mitral Valve MitralMitral Stenosis E wave0.44m/sMV Mean GR.mmHg A wave0.82m/sMV Peak GR.9mmHg E/A ratio0.52D MVAcm2 DECEL [id number] 1/2 [place] Aortic Valve Aortic ValveAortic Stenosis V10.91m/Narda Mean GR.3mmHg V21.31m/Narda Peak GR.7mmHg Pulmonic Valve V20.65m/s Tricuspid Valve TR Velocity2.15m/s [id number] LEFT VENTRICLE The Ejection Fraction is 25-35%. RIGHT VENTRICLE The right ventricle is dilated. ATRIA The left atrial size is normal. The right atrium is dilated. MITRAL VALVE The mitral valve is normal in structure and function. Mitral regurgitation is trace to mild. PULMONIC VALVE The pulmonic valve is not well visualized. TRICUSPID VALVE The tricuspid valve is grossly normal. There is trace tricuspid regurgitation. AORTIC VALVE The aortic valve opens well. No aortic regurgitation is present. GREAT VESSELS The aortic root is normal size. PERICARDIAL EFFUSION There is no pericardial effusion. Conclusion EF 35% JEREMIAH
== END | disposition home or self-care (01) ==
LOC: Rad HDHVI 08:38
PROVIDERS: ATTEND Internal Medicine Cardiovascular Disease
DX: I34.0 Nonrheumatic mitral (valve) insufficiency (principal); I11.0 Hypertensive heart disease with heart failure; I50.43 Acute on chronic combined systolic (congestive) and diastolic (congestive) heart failure
CPT/HCPCS: 93306

== ENCOUNTER 2025-09-28 08:58 | Outpatient (CLI) | payer MEDICARE, BC ==
[2025-09-28 09:10] VITALS: BP 140/95; PULSE 76; RESP 16; O2SAT 97
[2025-09-28 09:30] VITALS: BP 135/94; PULSE 81; RESP 16; O2SAT 97
[2025-09-28] MEDS ORDERED: CYAN1TAB11 PO (10:01)
[2025-09-28] MEDS ORDERED: AMIO200T33 PO (10:01)
[2025-09-28] MEDS ORDERED: OMEGCAP2 OR (10:01)
[2025-09-28] MEDS ORDERED: PYRI1TAB11 PO (10:01)
[2025-09-28] MEDS ORDERED: POM (10:01)
== END 2025-09-28 17:00 | disposition home or self-care (01) ==
LOC: CHF HDHVI 08:58
PROVIDERS: ATTEND Internal Medicine Cardiovascular Disease
DX: Z01.810 Encounter for preprocedural cardiovascular examination (principal); I48.91 Unspecified atrial fibrillation
CPT/HCPCS: 93005; G0463

== ENCOUNTER 2025-10-01 06:53 | Day surgery (SDC) | payer MEDICARE, BC ==
[2025-09-28 12:09] LABS: Hematocrit 49.4 % (41.0-53.0); Hemoglobin 16.6 g/dL (13.5-17.5); Mean Corpuscular Hemoglobin 32.9 pg (28.0-32.0); Mean Corpuscular Volume 97.9 fL (80.0-100.0); Nucleated Red Blood Cells % 0.1 %
[2025-09-28 12:27] LABS: Alanine Aminotransferase 21 U/L (7-40); Albumin 4.7 g/dL (3.2-4.8); Alkaline Phosphatase 75 U/L (46-116); Anion Gap 9 (5-15); BUN/Creatinine Ratio 8.2 (10.0-20.0); Blood Urea Nitrogen 10 mg/dL (9-23); Calcium 9.5 mg/dL (8.7-10.4); Carbon Dioxide 29 mmol/L (20-31); Chloride 106 mmol/L (98-107); Glucose 93 mg/dL (74-106); Potassium 4.4 mmol/L (3.5-5.1); Sodium 144 mmol/L (136-145); Total Protein 7.1 g/dL (5.7-8.2)
[2025-09-28 12:28] LABS: Bilirubin, Total 1.1 mg/dL (0.2-1.0); INR 1.07 (0.9-1.15); Partial Thromboplastin Time 28.0 SEC (24.5-34.5); Prothrombin Time 11.3 sec (9.3-11.8)
[~2025-10-01] VITALS: Ht 182.9 cm; Wt 90.7 kg
[~2025-10-01 06:53] MED LIST changes: +AMIO200T33 PO; +CYAN1TAB11 PO; -FOLI-49 PO; -METO-6 PO; +OMEGCAP2 OR; +POM
[2025-10-01] MEDS ORDERED: MIDAZOLAM HCL 2MG/2ML 2ml VIAL (1mg/ml) IV ONE (07:45)
[2025-10-01] MEDS ORDERED: fentaNYL CITRATE 100 MCG/2 ML VL IV ONE (07:45)
[2025-10-01 08:30] VITALS: BP 144/89; PULSE 84; RESP 13; O2SAT 98
[2025-10-01 08:45] VITALS: BP 150/108; PULSE 85; RESP 13; O2SAT 92
[2025-10-01 09:00] VITALS: BP 140/99; PULSE 76; RESP 15; O2SAT 97
[2025-10-01 09:15] VITALS: BP 137/98; PULSE 74; RESP 16; O2SAT 97
--- NOTE | 2025-10-01 09:20 | DVHHP ---
ADMIT DATE: 10/01/2025 HISTORY OF PRESENT ILLNESS: The patient, who is well known to me, who is 64 years old with a history of dilated cardiomyopathy, status post Bi-V AICD implantation, now in atrial fibrillation. Because of lack of atrial kick, the patient is having more symptoms and shortness of breath. He was started on amiodarone 400 mg b.i.d. and then was put on anticoagulation as well. With that, the patient has remained asymptomatic, but he is still having some dyspnea on exertion, which he did not have prior to him developing atrial fibrillation. If he continues to have AFib, AFib ablation should be considered. In the meantime, the patient will be undergoing cardioversion. He denies any PND, orthopnea, or palpitations. No syncopal episodes. No history of CVA. No history of TIA. No history of movement disorder. No history of any neurological disorders such as seizures. Denies any history of abdominal discomfort. No history of diarrhea, constipation, no irritable bowel syndrome, inflammatory bowel disease. He denies any lung disease. He does not have any history of tobacco use. No drug use. No alcohol use. He denies any history of peripheral vascular disease. His coronary angiography done prior to Bi-V AICD shows normal coronary anatomy; however, at that time, his ejection fraction less than 20%, but since the biventricular AICD, EF has improved to 30% and now with atrial fibrillation, there was again further deterioration of his LV function. Risks and benefits were explained to the patient. The patient understands and agrees. He is fully anticoagulated with antifactor 10 therapy. The patient is now to undergo elective cardioversion. PHYSICAL EXAMINATION: VITAL SIGNS: On physical examination, blood pressure is 128/80, pulse of 96 and irregular. HEENT: Pupils are reactive. Funduscopic exam shows no AV nicking. No exudates. No papilledema. Sclerae anicteric. NECK: No JVD appreciated. Carotid pulses are 2+ symmetrical. Normal upstroke and contour. No cervical adenopathy. No supraclavicular adenopathy. Oral mucosa moist. Posterior pharynx without any exudates. Neck is supple. No nuchal rigidity appreciated. PULMONARY: Clear to auscultation in all lung quintana. CARDIOVASCULAR: Irregularly irregular. PMI is slightly diffuse, inferiorly displaced. There is a 2/6 systolic murmur along the left sternal border without any radiation. ABDOMEN: Soft and nontender. Normal bowel sounds. No epigastric tenderness. No suprapubic tenderness. No CVA tenderness. Liver approximately 5 cm in span. Spleen tip nonpalpable. Stool Guaiac is negative. EXTREMITIES: 2+ pulses. NEUROLOGIC: The patient is intact. ASSESSMENT AND PLAN: Thus, the patient with dilated cardiomyopathy, heart failure with reduced ejection fraction, status post Bi-V AICD implantation, now onset of AFib with rapid ventricular response. He has been on amiodarone loading dose and now to undergo cardioversion. Further recommendations after the cardioversion. Dmitriy Reyes MD SA/Sushma Cordon TID: [id number] RECEIPT: [id number]
[2025-10-01 09:30] VITALS: BP 135/95; PULSE 75; RESP 17; O2SAT 97
--- NOTE | 2025-10-01 09:40 | DVHOP ---
DATE OF SURGERY: 10/01/2025 PROCEDURE TO BE PERFORMED: Cardioversion. REASON: Atrial fibrillation, rapid ventricular response. The patient with hypertension, history of dilated cardiomyopathy, status post Bi-V AICD and now has increasing stimulant use, that is energy drinks, that has caused him to go into atrial fibrillation. The patient is now to undergo cardioversion. PROCEDURE PERFORMED: Conscious sedation, cardioversion. DESCRIPTION OF PROCEDURE: The patient was prepped and draped in sterile condition. The patient was given 2 mg of Versed with adequate conscious sedation. A single 200 joule biphasic direct current was applied, synchronized. The patient converted with a single shock. Pacemaker/AICD was then interrogated. The patient is in sinus rhythm with AV sequential pacing. The patient will be maintained on anticoagulation. The patient will be maintained on amiodarone for now with no change in dosing until I see him in 1 week. CONCLUSION: The patient underwent successful cardioversion from atrial fibrillation with a single 200 joule biphasic direct energy applied. Dmitriy Reyes MD SA/ANA PAULA TID: [id number] RECEIPT: [id number]
--- NOTE | 2025-10-01 12:11 | DVHDS ---
DATE OF DISCHARGE: 10/01/2025 DISCHARGE DIAGNOSES: Atrial fibrillation status post successful external cardioversion. The patient is clinically stable, may be discharged home. Follow up with me in 1 week, stable at the time of discharge. He will continue all current medications. We will taper off on his amiodarone with next visit. I have advised him not to use any stimulants such as caffeine-based products. Follow up with me as stated above. Dmitriy Reyes MD SA/ROSMERY TID: [id number] RECEIPT: [id number]
--- NOTE | 2025-10-02 10:40 | ECG ---
[facility] Test Date: 2025-10-01 Test Time: 08:46:13 Pat Name: CHARLES BRISCOE Department: Room: Gender: M Poker Supervisor: Maryam : 1960 Requested By: LOAN TIDWELL Order Number: [id number] Reading MD: Piotr Moraes Measurements Intervals [place] Rate: 75 P: -3 SC: 88 QRS: -16 QRSD: 142 T: 256 QT: 450 QTc: 502 Interpretive Statements Electronic atrial pacemaker Left bundle branch block Electronically Signed On 10-08-2025 18:15:17 PST by Piotr Moraes Please click the below link to view image of tracing.
== END 2025-10-01 09:55 | disposition home or self-care (01) ==
LOC: CATH 06:53
PROVIDERS: ATTEND Internal Medicine Cardiovascular Disease
DX: I48.91 Unspecified atrial fibrillation (principal); R06.02 Shortness of breath; R06.09 Other forms of dyspnea; I11.0 Hypertensive heart disease with heart failure; I50.20 Unspecified systolic (congestive) heart failure; I42.0 Dilated cardiomyopathy; I44.7 Left bundle-branch block, unspecified; Z79.01 Long term (current) use of anticoagulants; Z95.810 Presence of automatic (implantable) cardiac defibrillator; Z87.891 Personal history of nicotine dependence; Z82.49 Family history of ischemic heart disease and other diseases of the circulatory system; Z80.8 Family history of malignant neoplasm of other organs or systems
CPT/HCPCS: 36415; 80053; 85025; 85610; 85730; 92960; 93005; J2250; 99152